=== PATIENT | male | born 1955 | race Caucasian/White ===

== ENCOUNTER → 2016-07-22 | Outpatient (CLI) | payer OTHER ==
--- NOTE | 2016-07-22 18:05 | REP ---
KUB: Single view. History: Left lower quadrant pain, flank pain. Findings: The bowel gas pattern is unremarkable. Psoas margins and flank stripes are intact. No mass or organomegaly is seen. No pathologic calcification is seen. Impression: Negative KUB. Signed by Altaf Meraz MD 07/22/2016 06:41 P
== END ==
LOC: M LRY 17:15
PROVIDERS: ATTEND Physician Assistant
DX: R10.9 Unspecified abdominal pain (principal); R10.32 Left lower quadrant pain

== ENCOUNTER → 2016-07-22 | Outpatient (REF) | payer OTHER ==
[2016-07-22 20:21] LABS: BASO % 0.4 % (0.0-1.0); EOS # 0.2 K/mm3 (0.0-0.50); EOS % 2.6 % (0.0-3.0); LARGE UNSTAINED CELL # 0.1 K/mm3 (0.0-0.4); LARGE UNSTAINED CELL % 2.2 % (0.0-4.0); LYMPH # 1.2 K/mm3 (1.5-4.5); LYMPH % 19.5 % (24.0-44.0); MEAN CORPUSCULAR HEMOGLOBIN 31.2 pg (27.0-33.0); MEAN CORPUSCULAR HGB CONC 35.8 g/dl (32.0-36.5); MEAN CORPUSCULAR VOLUME 87.2 fl (80.0-96.0); MONO # 0.4 K/mm3 (0.0-0.8); MONO % 7.1 % (0.0-5.0); NEUTROPHILS # 4.1 K/mm3 (1.8-7.7); NEUTROPHILS % 68.3 % (36.0-66.0); PLATELET COUNT, AUTOMATED 227 k/mm3 (150-450); RED CELL DISTRIBUTION WIDTH 13.9 % (11.5-14.5)
[2016-07-22 21:09] LABS: ALBUMIN/GLOBULIN RATIO 1.33 (1.00-1.93); ALKALINE PHOSPHATASE 79 U/L (45-117); ALT/SGPT 27 U/L (12-78); ANION GAP 10 MEQ/L (8-16); AST/SGOT 15 U/L (15-37); BILIRUBIN,TOTAL 0.6 MG/DL (0.2-1.0); BLOOD UREA NITROGEN 17 MG/DL (7-18); CALCIUM LEVEL 8.9 MG/DL (8.8-10.2); CARBON DIOXIDE LEVEL 25 MEQ/L (21-32); CHLORIDE LEVEL 107 MEQ/L (98-107); CREATININE FOR GFR 1.14 MG/DL (0.70-1.30); GLOMERULAR FILTRATION RATE > 60.0 (>49); GLUCOSE, FASTING 88 MG/DL (80-110); SODIUM LEVEL 142 MEQ/L (136-145)
[2016-07-23 13:36] LABS: CONTROL LINE INT CTR LINE PRESENT; HIV SCRN NEGATIVE (NEGATIVE); HIV SCRN1 NEGATIVE (NEGATIVE)
== END ==
LOC: M SFHCLERA 17:58
PROVIDERS: ATTEND Physician Assistant
DX: Z11.3 Encounter for screening for infections with a predominantly sexual mode of transmission (principal); R10.32 Left lower quadrant pain

== ENCOUNTER 2016-07-30 17:48 | Emergency (ER) | payer OTHER ==
[2016-07-30] MEDS ORDERED: KETOROLAC 30 MG/ML VIAL (J1885) As Ordered ONE (19:07)
[2016-07-30] MEDS ORDERED: ISOVUE-370 76% 100ML VIAL (Q9967) As Ordered ONE (19:09)
--- NOTE | 2016-07-30 20:00 | REPUSA ---
CT of the abdomen and pelvis with contrast Clinical statement: Pain. Possible diverticulitis. Technique: Multiple axial CT images were obtained from the base of the lungs through the floor of the pelvis utilizing 5 mm axial slices after administration of nonionic intravenous contrast. Coronal an d sagittal reconstructions were also obtained. No comparison is available. Findings: Chest: The visualized lung bases are clear. Abdomen: The liver, spleen, pancreas, kidneys, gallbladder, and adrenal glands are unremarkable. The aorta is within normal limits. There is no evidence of abdominal lymphadenopathy or ascites. Pelvis: There is minimal sigmoid diverticulosis, without evidence of diverticulitis. The bowel is ot herwise unremarkable, with no obstructive or inflammatory changes. The appendix is normal. The urinar y bladder is within normal limits. The other pelvic structures appear grossly intact. There is no racquel dence of pelvic lymphadenopathy or ascites. Bones: There are no suspicious osseous abnormalities seen. There is mild degenerative disc disease at L4/L5. Impression: 1. Mild sigmoid diverticulosis without evidence of diverticulitis. No obstructive or inflammatory bow el changes. 2. No evidence of hydronephrosis or nephrolithiasis. 3. Minimal degenerative disc disease at L4/L5.
--- NOTE | 2016-07-30 20:35 | EDDOCDS ---
Nurse's Notes [facility] Name: Antoine Causey Age: 61 yrs Sex: Male : 1955 Arrival Date: 07/30/2016 Time: 17:48 Bed I5 / M5 Private MD: NO PRIMARY PHYSICIAN, . Diagnosis: Diverticulitis of intestine, part unspecified, without perforation or abscess without bleeding Presentation: 07/30 17:58 Presenting complaint: Patient states: Went to [facility] urgent care 07/22/16 with severe jo3 pain to LLQ. Did abdominal XR and urine screen both negative. Pain has been intermittent but is intense today. Was told to follow up for a CT if pain did not resolve. Adult Sepsis Screening: The patient does not have new or worsening altered mentation. Patient's respiratory rate is less than 22. Systolic blood pressure is greater than 100. Patient has a qSOFA score of 0- Negative Sepsis Screen. Suicide/Homicide risk assessment- the patient denies having any suicidal and/or homicidal ideations and does not present with any other emotional, behavioral or mental health complaints. Status: Patient is not a social service agency director or dependent. Transition of care: patient was not received from another setting of care. 17:58 Acuity: BROOKE Level 3 jo3 17:58 Method Of Arrival: Walkin/Carried/Asstd jo3 Triage Assessment: 18:03 General: Appears in no apparent distress, comfortable, Behavior is appropriate for age, jo3 cooperative, pleasant. Pain: Pain currently is 8 out of 10 on a pain scale. HIV screening NA for this visit Offered previously. Neurological: Level of Consciousness is awake, alert, Oriented to person, place, time. Respiratory: Airway is patent Respiratory effort is even, unlabored. Derm: Skin is pink, warm & dry. Historical: - Allergies: Benadryl; - Home Meds: 1. Aleve 220 mg Oral tab 1 tab every 8 hours 2. Symbicort 160-4.5 mcg/actuation inhalation HFAA 2 puffs 2 times per day 3. multivitamin Oral tab 4. albuterol sulfate 90 mcg/actuation Inhl HFAA - PMHx: Hypercholesterolemia; Asthma; - PSHx: Tonsillectomy; Hernia repair; Cervical Fusion; - Social history: Smoking status: Patient states was never smoker of tobacco. No barriers to communication noted, The patient speaks fluent Guyanese, Speaks appropriately for age. - Family history: Not pertinent. - : The pt / caregiver states he / she is not on anticoagulants. Home medication list is obtained from the patient. - Exposure Risk Screening:: None identified. Screenin:24 Screening information is obtained from the patient. Fall risk: No risks identified. ms18 Assistance ADL's: requires no assistance with activities of daily living. Abuse/DV Screen: The patient / caregiver reports he/she is: not in a situation that causes fear, pain or injury. Nutritional screening: No deficits noted. Advance Directives: There is no living will. home support is adequate. Assessment: 19:24 General: Appears in no apparent distress, comfortable, Behavior is appropriate for age, ms18 cooperative, pleasant. Pain: Location: right lower quadrant Pain currently is 8 out of 10 on a pain scale. Neurological: Level of Consciousness is awake, alert, obeys commands, Oriented to person, place, time. Respiratory: Airway is patent Respiratory effort is even, unlabored. GI: Abdomen is flat, non- distended Bowel sounds present X 4 quads. Abd is soft X 4 quads. Derm: Skin is pink, warm & dry. 19:40 General: Pt returned from CT at this time. Pt in no acute distress. . Neurological: No ms18 deficits noted. Respiratory: No deficits noted. Derm: Skin is pink, warm & dry. normal. 20:33 General: Appears in no apparent distress, comfortable, Behavior is appropriate for age, ms18 cooperative, pleasant. Pain: Pain currently is 6 out of 10 on a pain scale. Neurological: No deficits noted. Level of Consciousness is awake, alert, obeys commands, Oriented to person, place, time, Gait is steady. Respiratory: No deficits noted. Derm: Skin is pink, warm & dry. Vital Signs: 17:51 BP 121 / 85; Pulse 61; Resp 18; Temp 97.6(O); Pulse Ox 98% on R/A; Weight 72.57 kg (R); elp Height 5 ft. 6 in. (167.64 cm) (R); Pain 8/10; 20:33 BP 111 / 67; Pulse 64; Resp 18; Temp 97.5; Pulse Ox 97% ; Pain 6/10; ms18 17:51 Body Mass Index 25.82 (72.57 kg, 167.64 cm) elp Vitals: 17:51 Log In Time: July 30, 2016 at 17:47. elp ED Course: 17:50 Patient visited by Aileen Haas PCA. elp 17:50 Patient moved to Waiting elp 17:51 NO PRIMARY PHYSICIAN, . is Private Physician. elp 17:51 Patient visited by Aileen Haas PCA. elp 17:52 Patient moved to Pre RCE elp 18:01 Triage Initiated jo3 18:04 Patient visited by Shu Saravia RN. jo3 18:48 Patient moved to Triage 2 kcs 18:56 [facility] cc[facility] 18:56 Farhan Palumbo MD is Attending Physician. cc10 18:56 Patient visited by Cory Carter PA-C. cc10 18:56 Patient visited by Cory Carter PA-C. cc10 19:05 Patient moved to I5 / M5 ct3 19:23 Patient visited by Beverley Mendieta RN. ms18 19:24 The patient / caregiver is instructed regarding the plan of care and ED course. Patient ms18 has correct armband on for positive identification. Placed in gown. Bed in low position. Property :Personal belongings accompany Pt. 19:24 Inserted saline lock: 18 gauge in left antecubital area The patient tolerated the ms18 procedure well. 19:39 Patient visited by Beverley Mendieta RN. ms18 20:14 CT ABD & PELVIS: IV Contrast Only: has recent labs Returned. EDMS 20:15 [facility] is Referral Physician. cc10 20:24 [facility] Payment Agreement was scanned into [employer] and attached to record. gjb 20:33 Patient visited by Beverley Mendieta RN. ms18 20:33 Discontinued IV lock intact, bleeding controlled, pressure dressing applied, No ms18 redness/swelling at site. No procedures done that require assistance. Administered Medications: 19:23 Drug: ketorolac 30 mg [ketorolac 30 mg/mL (1 mL) injection solution (1 mL)] Route: IVP; ms18 Site: left antecubital; Order Results: Radiology Order: CT ABD & PELVIS: IV Contrast Only: has recent labs Test: CT ABD & PELVIS: IV Contrast Only: has recent labs REASON FOR EXAMINATION: Diverticulitis; ; CT of the abdomen and pelvis with contrast; Clinical statement: Pain. Possible diverticulitis.; Technique: Multiple axial CT images were obtained from the base of the lungs through the floor of the; pelvis utilizing 5 mm axial slices after administration of nonionic intravenous contrast. Coronal an; d sagittal reconstructions were also obtained.; No comparison is available.; Findings:; Chest: The visualized lung bases are clear.; Abdomen: The liver, spleen, pancreas, kidneys, gallbladder, and adrenal glands are unremarkable. The; aorta is within normal limits. There is no evidence of abdominal lymphadenopathy or ascites.; Pelvis: There is minimal sigmoid diverticulosis, without evidence of diverticulitis. The bowel is ot; herwise unremarkable, with no obstructive or inflammatory changes. The appendix is normal. The urinar; y bladder is within normal limits. The other pelvic structures appear grossly intact. There is no racquel; dence of pelvic lymphadenopathy or ascites.; Bones: There are no suspicious osseous abnormalities seen. There is mild degenerative disc disease at; L4/L5.; Impression:; 1. Mild sigmoid diverticulosis without evidence of diverticulitis. No obstructive or inflammatory bow; el changes.; 2. No evidence of hydronephrosis or nephrolithiasis.; 3. Minimal degenerative disc disease at L4/L5.; ; Outcome: 20:15 Discharge ordered by Provider. cc10 20:33 Discharge Assessment: Patient awake, alert and oriented x 3. No cognitive and/or ms18 functional deficits noted. Patient verbalized understanding of disposition instructions. patient administered narcotics - no. The following High Risk Discharge criteria are identified: None. Discharged to home ambulatory. Condition: good Condition: stable Condition: improved. Discharge instructions given to patient, Instructed on discharge instructions, follow up and referral plans. medication usage, diet, Demonstrated understanding of instructions, medications, Pt was receptive of discharge instructions/ teaching. Prescriptions given X 4. CT Study completed. 20:34 Patient left the ED. ms18 Signatures: Dispatcher [employer] EDMS Miriam Dover RN RN kcs Helmerci, Jennifer, RN RN jo3 Velma Healy, GOLF COURSE MECHANIC GOLF COURSE MECHANIC ct3 Aileen Haas, GOLF COURSE MECHANIC GOLF COURSE MECHANIC elp Con[place]gaby, Cory, PA-C PA-C cc10 Beverley Mendieta,RN RN ms18 Leah Croft MTDD
--- NOTE | 2016-07-30 20:35 | EDDOCDS ---
Physician Documentation [facility] Name: Antoine Causey Age: 61 yrs Sex: Male : 1955 Arrival Date: 07/30/2016 Time: 17:48 Bed I5 / M5 Private MD: NO PRIMARY PHYSICIAN, . Disposition: 07/30/16 20:15 Discharged to Home/Self Care. Impression: Diverticulitis of intestine, part unspecified, without perforation or abscess without bleeding. - Condition is Stable. - Discharge Instructions: Clear Liquid Diet, Diverticulitis. - Prescriptions for Cipro 500 mg Oral Tablet - take 1 tablet by ORAL route every 12 hours; 14 tablet. Flagyl 500 mg Oral Tablet - take 1 tablet by ORAL route every 8 hours for 7 days; 21 tablet. Ultram 50 mg Oral Tablet - take 1 tablet by ORAL route every 6 hours As needed MDD: 4 tabs; 16 tablet. ZOFRAN ODT 4 mg - dissolve 1 tablet by ORAL route 4 times per day As needed do not chew, do not swallow whole; 10 tablet. - Medication Reconciliation, Local Pharmacy Hours form. - Follow up: Emergency Department; When: As needed; Reason: Worsening of conditions. [facility]: [facility]; When: Call to arrange an appointment; Reason: Recheck today's complaints, Continuance of care, To establish care. - Problem is an ongoing problem. - Symptoms are unchanged. Historical: - Allergies: Benadryl; - Home Meds: 1. Aleve 220 mg Oral tab 1 tab every 8 hours 2. Symbicort 160-4.5 mcg/actuation inhalation HFAA 2 puffs 2 times per day 3. multivitamin Oral tab 4. albuterol sulfate 90 mcg/actuation Inhl HFAA - PMHx: Hypercholesterolemia; Asthma; - PSHx: Tonsillectomy; Hernia repair; Cervical Fusion; - Social history: Smoking status: Patient states was never smoker of tobacco. No barriers to communication noted, The patient speaks fluent Yakut, Speaks appropriately for age. - Family history: Not pertinent. - : The pt / caregiver states he / she is not on anticoagulants. Home medication list is obtained from the patient. - Exposure Risk Screening:: None identified. Vital Signs: 07/30 17:51 BP 121 / 85; Pulse 61; Resp 18; Temp 97.6(O); Pulse Ox 98% on R/A; Weight 72.57 kg / elp 159.99 lbs (R); Height 5 ft. 6 in. (167.64 cm) (R); Pain 8/10; 20:33 BP 111 / 67; Pulse 64; Resp 18; Temp 97.5; Pulse Ox 97% ; Pain 6/10; ms18 17:51 Body Mass Index 25.82 (72.57 kg, 167.64 cm) elp MDM: 19:04 IV Saline Lock ordered. cc10 19:04 Undress patient appropriately for examination ordered. cc10 19:04 ketorolac 30 mg IVP once ordered. cc10 19:05 NOTHING BY MOUTH+DIET ordered. EDMS 19:06 CT ABD & PELVIS: IV Contrast Only: has recent labs Ordered. EDMS 20:15 Financial registration complete. gjb 20:24 [facility] Payment Agreement was scanned into [employer] and attached to record. gjb Administered Medications: 19:23 Drug: ketorolac 30 mg [ketorolac 30 mg/mL (1 mL) injection solution (1 mL)] Route: IVP; ms18 Site: left antecubital; Signatures: Dispatcher [employer] EDMS Shu Saravia RN RN jo3 Cory Carter, PAEmilyC PASherine cc10 Beverley Mendieta RN RN ms18 Leah Croft The chart was reviewed and I authenticate all verbal orders and agree with the evaluation and treatment provided.Attachments: 20:24 [facility] Payment Agreement gjb MTDD
--- NOTE | 2016-08-01 21:35 | EDDOCDS ---
Physician Documentation [facility] Name: Antoine Causey Age: 61 yrs Sex: Male : 1955 Arrival Date: 07/30/2016 Time: 17:48 Bed I5 / M5 Private MD: NO PRIMARY PHYSICIAN, . Disposition: 07/30/16 20:15 Discharged to Home/Self Care. Impression: Diverticulitis of intestine, part unspecified, without perforation or abscess without bleeding. - Condition is Stable. - Discharge Instructions: Clear Liquid Diet, Diverticulitis. - Prescriptions for Cipro 500 mg Oral Tablet - take 1 tablet by ORAL route every 12 hours; 14 tablet. Flagyl 500 mg Oral Tablet - take 1 tablet by ORAL route every 8 hours for 7 days; 21 tablet. Ultram 50 mg Oral Tablet - take 1 tablet by ORAL route every 6 hours As needed MDD: 4 tabs; 16 tablet. ZOFRAN ODT 4 mg - dissolve 1 tablet by ORAL route 4 times per day As needed do not chew, do not swallow whole; 10 tablet. - Medication Reconciliation, Local Pharmacy Hours form. - Follow up: Emergency Department; When: As needed; Reason: Worsening of conditions. [facility]: [facility]; When: Call to arrange an appointment; Reason: Recheck today's complaints, Continuance of care, To establish care. - Problem is an ongoing problem. - Symptoms are unchanged. Historical: - Allergies: Benadryl; - Home Meds: 1. Aleve 220 mg Oral tab 1 tab every 8 hours 2. Symbicort 160-4.5 mcg/actuation inhalation HFAA 2 puffs 2 times per day 3. multivitamin Oral tab 4. albuterol sulfate 90 mcg/actuation Inhl HFAA - PMHx: Hypercholesterolemia; Asthma; - PSHx: Tonsillectomy; Hernia repair; Cervical Fusion; - Social history: Smoking status: Patient states was never smoker of tobacco. No barriers to communication noted, The patient speaks fluent Bulgarian, Speaks appropriately for age. - Family history: Not pertinent. - : The pt / caregiver states he / she is not on anticoagulants. Home medication list is obtained from the patient. - Exposure Risk Screening:: None identified. Vital Signs: 07/30 17:51 BP 121 / 85; Pulse 61; Resp 18; Temp 97.6(O); Pulse Ox 98% on R/A; Weight 72.57 kg / elp 159.99 lbs (R); Height 5 ft. 6 in. (167.64 cm) (R); Pain 8/10; 20:33 BP 111 / 67; Pulse 64; Resp 18; Temp 97.5; Pulse Ox 97% ; Pain 6/10; ms18 17:51 Body Mass Index 25.82 (72.57 kg, 167.64 cm) elp MDM: 19:04 IV Saline Lock ordered. cc10 19:04 Undress patient appropriately for examination ordered. cc10 19:04 ketorolac 30 mg IVP once ordered. cc10 19:05 NOTHING BY MOUTH+DIET ordered. EDMS 19:06 CT ABD & PELVIS: IV Contrast Only: has recent labs Ordered. EDMS 20:15 Financial registration complete. b 20:24 [facility] Payment Agreement was scanned into [employer] and attached to record. gjb 07/31 12:05 T-Sheet-- Draft Copy was scanned into [employer] and attached to record. gb 12:05 Radiology Report was scanned into [employer] and attached to record. gb Administered Medications: 07/30 19:23 Drug: ketorolac 30 mg [ketorolac 30 mg/mL (1 mL) injection solution (1 mL)] Route: IVP; ms18 Site: left antecubital; Signatures: Dispatcher [employer] EDNJ Samia Lunsford, Cain Reg Shu Gutierrez RN RN jo3 Cory Carter PA-C PA-C cc10 Smith, Mallory, RN RN ms18 Leah Croft The chart was reviewed and I authenticate all verbal orders and agree with the evaluation and treatment provided.Attachments: 20:24 [facility] Payment Agreement [facility] 07/31 12:05 T-Sheet-- Draft Copy gb Chart Complete MTDD
--- NOTE | 2016-08-01 21:35 | EDDOCDS ---
Nurse's Notes [facility] Name: Antoine Causey Age: 61 yrs Sex: Male : 1955 Arrival Date: 07/30/2016 Time: 17:48 Bed I5 / M5 Private MD: NO PRIMARY PHYSICIAN, . Diagnosis: Diverticulitis of intestine, part unspecified, without perforation or abscess without bleeding Presentation: 07/30 17:58 Presenting complaint: Patient states: Went to [facility] urgent care 07/22/16 with severe jo3 pain to LLQ. Did abdominal XR and urine screen both negative. Pain has been intermittent but is intense today. Was told to follow up for a CT if pain did not resolve. Adult Sepsis Screening: The patient does not have new or worsening altered mentation. Patient's respiratory rate is less than 22. Systolic blood pressure is greater than 100. Patient has a qSOFA score of 0- Negative Sepsis Screen. Suicide/Homicide risk assessment- the patient denies having any suicidal and/or homicidal ideations and does not present with any other emotional, behavioral or mental health complaints. 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 Transition of care: patient was not received from another setting of care. 17:58 Acuity: BROOKE Level 3 jo3 17:58 Method Of Arrival: Walkin/Carried/Asstd jo3 Triage Assessment: 18:03 General: Appears in no apparent distress, comfortable, Behavior is appropriate for age, jo3 cooperative, pleasant. Pain: Pain currently is 8 out of 10 on a pain scale. HIV screening NA for this visit Offered previously. Neurological: Level of Consciousness is awake, alert, Oriented to person, place, time. Respiratory: Airway is patent Respiratory effort is even, unlabored. Derm: Skin is pink, warm & dry. Historical: - Allergies: Benadryl; - Home Meds: 1. Aleve 220 mg Oral tab 1 tab every 8 hours 2. Symbicort 160-4.5 mcg/actuation inhalation HFAA 2 puffs 2 times per day 3. multivitamin Oral tab 4. albuterol sulfate 90 mcg/actuation Inhl HFAA - PMHx: Hypercholesterolemia; Asthma; - PSHx: Tonsillectomy; Hernia repair; Cervical Fusion; - Social history: Smoking status: Patient states was never smoker of tobacco. No barriers to communication noted, The patient speaks fluent Ghanaian, Speaks appropriately for age. - Family history: Not pertinent. - : The pt / caregiver states he / she is not on anticoagulants. Home medication list is obtained from the patient. - Exposure Risk Screening:: None identified. Screenin:24 Screening information is obtained from the patient. Fall risk: No risks identified. ms18 Assistance ADL's: requires no assistance with activities of daily living. Abuse/DV Screen: The patient / caregiver reports he/she is: not in a situation that causes fear, pain or injury. Nutritional screening: No deficits noted. Advance Directives: There is no living will. home support is adequate. Assessment: 19:24 General: Appears in no apparent distress, comfortable, Behavior is appropriate for age, ms18 cooperative, pleasant. Pain: Location: right lower quadrant Pain currently is 8 out of 10 on a pain scale. Neurological: Level of Consciousness is awake, alert, obeys commands, Oriented to person, place, time. Respiratory: Airway is patent Respiratory effort is even, unlabored. GI: Abdomen is flat, non- distended Bowel sounds present X 4 quads. Abd is soft X 4 quads. Derm: Skin is pink, warm & dry. 19:40 General: Pt returned from CT at this time. Pt in no acute distress. . Neurological: No ms18 deficits noted. Respiratory: No deficits noted. Derm: Skin is pink, warm & dry. normal. 20:33 General: Appears in no apparent distress, comfortable, Behavior is appropriate for age, ms18 cooperative, pleasant. Pain: Pain currently is 6 out of 10 on a pain scale. Neurological: No deficits noted. Level of Consciousness is awake, alert, obeys commands, Oriented to person, place, time, Gait is steady. Respiratory: No deficits noted. Derm: Skin is pink, warm & dry. Vital Signs: 17:51 BP 121 / 85; Pulse 61; Resp 18; Temp 97.6(O); Pulse Ox 98% on R/A; Weight 72.57 kg (R); elp Height 5 ft. 6 in. (167.64 cm) (R); Pain 8/10; 20:33 BP 111 / 67; Pulse 64; Resp 18; Temp 97.5; Pulse Ox 97% ; Pain 6/10; ms18 17:51 Body Mass Index 25.82 (72.57 kg, 167.64 cm) [facility] Vitals: 17:51 Log In Time: July 30, 2016 at 17:47. elp ED Course: 17:50 Patient visited by Aileen Haas PCA. elp 17:50 Patient moved to Waiting elp 17:51 NO PRIMARY PHYSICIAN, . is Private Physician. elp 17:51 Patient visited by Aileen Haas PCA. elp 17:52 Patient moved to Pre RCE elp 18:01 Triage Initiated jo3 18:04 Patient visited by Shu Saravia RN. jo3 18:48 Patient moved to Triage 2 kcs 18:56 Cory Carter [facility]-C [facility]. cc10 18:56 Farhan Palumbo MD is Attending Physician. cc10 18:56 Patient visited by Cory Carter PA-C. cc10 18:56 Patient visited by Cory Carter PA-C. cc10 19:05 Patient moved to I5 / M5 ct3 19:23 Patient visited by Beverley Mendieta RN. ms18 19:24 The patient / caregiver is instructed regarding the plan of care and ED course. Patient ms18 has correct armband on for positive identification. Placed in gown. Bed in low position. Property :Personal belongings accompany Pt. 19:24 Inserted saline lock: 18 gauge in left antecubital area The patient tolerated the ms18 procedure well. 19:39 Patient visited by Beverley Mendieta RN. ms18 20:14 CT ABD & PELVIS: IV Contrast Only: has recent labs Returned. EDMS 20:15 [facility] is Referral Physician. cc10 20:24 [facility] Payment Agreement was scanned into [employer] and attached to record. gjb 20:33 Patient visited by Beverley Mendieta RN. ms18 20:33 Discontinued IV lock intact, bleeding controlled, pressure dressing applied, No ms18 redness/swelling at site. No procedures done that require assistance. 07/31 12:05 T-Sheet-- Draft Copy was scanned into [employer] and attached to record. gb 12:05 Radiology Report was scanned into [employer] and attached to record. gb Administered Medications: 07/30 19:23 Drug: ketorolac 30 mg [ketorolac 30 mg/mL (1 mL) injection solution (1 mL)] Route: IVP; ms18 Site: left antecubital; Order Results: Radiology Order: CT ABD & PELVIS: IV Contrast Only: has recent labs Test: CT ABD & PELVIS: IV Contrast Only: has recent labs REASON FOR EXAMINATION: Diverticulitis; ; CT of the abdomen and pelvis with contrast; Clinical statement: Pain. Possible diverticulitis.; Technique: Multiple axial CT images were obtained from the base of the lungs through the floor of the; pelvis utilizing 5 mm axial slices after administration of nonionic intravenous contrast. Coronal an; d sagittal reconstructions were also obtained.; No comparison is available.; Findings:; Chest: The visualized lung bases are clear.; Abdomen: The liver, spleen, pancreas, kidneys, gallbladder, and adrenal glands are unremarkable. The; aorta is within normal limits. There is no evidence of abdominal lymphadenopathy or ascites.; Pelvis: There is minimal sigmoid diverticulosis, without evidence of diverticulitis. The bowel is ot; herwise unremarkable, with no obstructive or inflammatory changes. The appendix is normal. The urinar; y bladder is within normal limits. The other pelvic structures appear grossly intact. There is no racquel; dence of pelvic lymphadenopathy or ascites.; Bones: There are no suspicious osseous abnormalities seen. There is mild degenerative disc disease at; L4/L5.; Impression:; 1. Mild sigmoid diverticulosis without evidence of diverticulitis. No obstructive or inflammatory bow; el changes.; 2. No evidence of hydronephrosis or nephrolithiasis.; 3. Minimal degenerative disc disease at L4/L5.; ; Outcome: 20:15 Discharge ordered by Provider. cc10 20:33 Discharge Assessment: Patient awake, alert and oriented x 3. No cognitive and/or ms18 functional deficits noted. Patient verbalized understanding of disposition instructions. patient administered narcotics - no. The following High Risk Discharge criteria are identified: None. Discharged to home ambulatory. Condition: good Condition: stable Condition: improved. Discharge instructions given to patient, Instructed on discharge instructions, follow up and referral plans. medication usage, diet, Demonstrated understanding of instructions, medications, Pt was receptive of discharge instructions/ teaching. Prescriptions given X 4. CT Study completed. 20:34 Patient left the ED. ms18 Signatures: Dispatcher [employer] EDMS Miriam Dover, RN RN kcs Isatu, Samia, Reg Reg gb Shu SaraviaRN RN jo3 Monet, Velma, REFINERY OPERATOR VISBREAKING REFINERY OPERATOR VISBREAKING ct3 Aileen Haas, REFINERY OPERATOR VISBREAKING REFINERY OPERATOR VISBREAKING elp Emma, Cory, PA-C PA-C cc10 Beverley Mendieta RN RN ms18 Leah Croft [facility] Chart Complete MTDD
--- NOTE | 2016-08-01 21:35 | EDDOCDS ---
Physician Documentation [facility] Name: Antoine Causey Age: 61 yrs Sex: Male : 1955 Arrival Date: 07/30/2016 Time: 17:48 Bed I5 / M5 Private MD: NO PRIMARY PHYSICIAN, . Disposition: 07/30/16 20:15 Discharged to Home/Self Care. Impression: Diverticulitis of intestine, part unspecified, without perforation or abscess without bleeding. - Condition is Stable. - Discharge Instructions: Clear Liquid Diet, Diverticulitis. - Prescriptions for Cipro 500 mg Oral Tablet - take 1 tablet by ORAL route every 12 hours; 14 tablet. Flagyl 500 mg Oral Tablet - take 1 tablet by ORAL route every 8 hours for 7 days; 21 tablet. Ultram 50 mg Oral Tablet - take 1 tablet by ORAL route every 6 hours As needed MDD: 4 tabs; 16 tablet. ZOFRAN ODT 4 mg - dissolve 1 tablet by ORAL route 4 times per day As needed do not chew, do not swallow whole; 10 tablet. - Medication Reconciliation, Local Pharmacy Hours form. - Follow up: Emergency Department; When: As needed; Reason: Worsening of conditions. Follow up: [facility]; When: Call to arrange an appointment; Reason: Recheck today's complaints, Continuance of care, To establish care. - Problem is an ongoing problem. - Symptoms are unchanged. Historical: - Allergies: Benadryl; - Home Meds: 1. Aleve 220 mg Oral tab 1 tab every 8 hours 2. Symbicort 160-4.5 mcg/actuation inhalation HFAA 2 puffs 2 times per day 3. multivitamin Oral tab 4. albuterol sulfate 90 mcg/actuation Inhl HFAA - PMHx: Hypercholesterolemia; Asthma; - PSHx: Tonsillectomy; Hernia repair; Cervical Fusion; - Social history: Smoking status: Patient states was never smoker of tobacco. No barriers to communication noted, The patient speaks fluent Wolof, Speaks appropriately for age. - Family history: Not pertinent. - : The pt / caregiver states he / she is not on anticoagulants. Home medication list is obtained from the patient. - Exposure Risk Screening:: None identified. Vital Signs: 07/30 17:51 BP 121 / 85; Pulse 61; Resp 18; Temp 97.6(O); Pulse Ox 98% on R/A; Weight 72.57 kg / elp 159.99 lbs (R); Height 5 ft. 6 in. (167.64 cm) (R); Pain 8/10; 20:33 BP 111 / 67; Pulse 64; Resp 18; Temp 97.5; Pulse Ox 97% ; Pain 6/10; ms18 17:51 Body Mass Index 25.82 (72.57 kg, 167.64 cm) elp MDM: 19:04 IV Saline Lock ordered. cc10 19:04 Undress patient appropriately for examination ordered. cc10 19:04 ketorolac 30 mg IVP once ordered. cc10 19:05 NOTHING BY MOUTH+DIET ordered. EDMS 19:06 CT ABD & PELVIS: IV Contrast Only: has recent labs Ordered. EDMS 20:15 Financial registration complete. b 20:24 [facility] Payment Agreement was scanned into [employer] and attached to record. gjb 07/31 12:05 T-Sheet-- Draft Copy was scanned into [employer] and attached to record. gb 12:05 Radiology Report was scanned into [employer] and attached to record. gb Administered Medications: 07/30 19:23 Drug: ketorolac 30 mg [ketorolac 30 mg/mL (1 mL) injection solution (1 mL)] Route: IVP; ms18 Site: left antecubital; Signatures: Dispatcher [employer] EDTN Samia Lunsford, Cain Reg Shu Gutierrez RN RN jo3 Cory Carter PA-C PA-C cc10 Smith, Mallory, RN RN ms18 Leah Croft The chart was reviewed and I authenticate all verbal orders and agree with the evaluation and treatment provided.Attachments: 20:24 [facility] Payment Agreement [facility] 07/31 12:05 T-Sheet-- Draft Copy gb Chart Complete MTDD
== END 2016-07-30 20:34 | disposition home or self-care (01) ==
LOC: M ED 17:48
DX: K57.30 Diverticulosis of large intestine without perforation or abscess without bleeding (principal); J45.909 Unspecified asthma, uncomplicated; E78.00 Pure hypercholesterolemia, unspecified; Z79.51 Long term (current) use of inhaled steroids; Z88.8 Allergy status to other drugs, medicaments and biological substances
CPT/HCPCS: 74177; 96374; 99284; J1885; Q9967

== ENCOUNTER 2016-09-11 15:05 | Emergency (ER) | payer MEDICARE, OTHER ==
[~2016-09-11] VITALS: Ht 167.6 cm; Wt 72.6 kg
[2016-09-11] MEDS ORDERED: SYMB16INH INH (15:22)
[2016-09-11] MEDS ORDERED: ALBU83IN INH ×2 (15:22→17:48)
[2016-09-11] MEDS ORDERED: ACETAMINOPHEN 325 MG TAB PO ONE (16:45)
[2016-09-11] MEDS ORDERED: IBUPROFEN 600 MG TAB PO ONE (16:45)
[2016-09-11 17:48] VITALS: BP 104/69
[2016-09-11] MEDS ORDERED: ZOFR4TAB3 PO (17:48)
[2016-09-11] MEDS ORDERED: TESS100C PO (17:48)
--- NOTE | 2016-09-11 18:19 | REP ---
Chest x-ray: Two views. History: Cough and fever, question pneumonia. Comparison chest x-ray March 13, 2014. Findings: The patient is status post anterior cervical discectomy and fusion. The lungs are well inflated and clear. The pleural angles are sharp. Heart size is normal. The aorta is somewhat tortuous as before. Pulmonary vasculature is not increased. Impression: No active disease. Signed by Altaf Meraz MD 09/11/2016 07:02 P
[2016-10-13] MEDS ORDERED: MULT1TAB10 PO (11:48)
[2016-10-13] MEDS ORDERED: ZYRT10TA2 PO (11:48)
== END 2016-09-11 17:57 | disposition home or self-care (01) ==
LOC: M ED 17:23
DX: B34.9 Viral infection, unspecified (principal)

== ENCOUNTER → 2016-09-15 | Outpatient (REF) | payer OTHER ==
[~2016-09-15] MED LIST: ALBU83IN INH; SYMB16INH INH; TESS100C PO; ZOFR4TAB3 PO
== END ==
LOC: M SFHCLERA 14:24
PROVIDERS: ATTEND Family Medicine
DX: Z13.1 Encounter for screening for diabetes mellitus (principal); Z13.220 Encounter for screening for lipoid disorders

== ENCOUNTER → 2016-09-21 | Outpatient (REF) | payer MEDICARE, OTHER ==
[~2016-09-21] MED LIST changes: +MULT1TAB10 PO; +ZYRT10TA2 PO
== END ==
LOC: M SFHCLERA 15:04
PROVIDERS: ATTEND Family Medicine
DX: Z13.1 Encounter for screening for diabetes mellitus (principal); Z13.220 Encounter for screening for lipoid disorders

== ENCOUNTER → 2016-10-09 | Outpatient (CLI) | payer MEDICARE, OTHER ==
[~2016-10-09] MED LIST changes: +E-Z PAQUE 60% w/v SUSP 355ML BOTTLE As Ordered ONE; +E-Z-GAS II EFFERVESCENT PACKET (SODIUM BICARB./CITRIC ACID/SIMETHICONE) As Ordered ONE; +E-Z-HD 98% w/w 340GM SUSP BTL As Ordered ONE
--- NOTE | 2016-10-09 13:33 | REP ---
ESOPHAGRAM WITH BARIUM SWALLOW AND PA CHEST: 10/09/2016. Clinical history: Dysphagia, sensation of food getting stuck with difficulty swallowing. Heartburn and reflux symptoms. Comparison: CT soft tissue neck 03/13/2014. Findings: Planer Stone PA chest shows C6-7 anterior cervical discectomy plate and screw fusion device. Airway midline, not displaced. No air-fluid levels in the mediastinum. No widening of the ascending. The aorta is mildly tortuous but normal for age. No cardiomegaly. Bones show some degenerative changes in the spine and the lungs show no acute finding. AP and lateral CINE esophagram show indentation of the posterior margin of the lower cervical esophagus by the plate and screw fixation device at the C7 level, more than C6. Anterior osteophytes are present. There is foraminal encroachment on these oblique lateral swallows due to uncinate and facet spurs. There is no laryngeal penetration or aspiration. Thoracic esophagus shows some dysmotility. There is a small to moderate sized hiatal hernia. This did not reduce. Distal esophagus without tight stricture but the dysmotility is notable with some secondary contractions. There were episodes of free reflux into the lower esophageal segment. Impression: 1. Posterior impression on the cervical esophagus causing some mild narrowing due to the plate and screw fixation device at C6-7 from anterior discectomy. No laryngeal penetration or aspiration. 2. 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 No persistent tight stricture, mucosal lesions or extrinsic mass effect visible. Fluoroscopy time: 1-min 16-sec. Signed by Pradip Kohler MD 10/09/2016 03:04 P
== END ==
LOC: M RAD 09:56
PROVIDERS: ATTEND Physician Assistant Medical
DX: K44.9 Diaphragmatic hernia without obstruction or gangrene (principal); R13.10 Dysphagia, unspecified; R12 Heartburn

== ENCOUNTER → 2016-10-20 | Outpatient (CLI) | payer MEDICARE, OTHER ==
[~2016-10-20] VITALS: Ht 167.6 cm; Wt 72.6 kg
[~2016-10-20] MED LIST changes: -E-Z PAQUE 60% w/v SUSP 355ML BOTTLE As Ordered ONE; -E-Z-GAS II EFFERVESCENT PACKET (SODIUM BICARB./CITRIC ACID/SIMETHICONE) As Ordered ONE; -E-Z-HD 98% w/w 340GM SUSP BTL As Ordered ONE; +LIDOCAINE 2% INJ 100 MG/5 ML SDV (FOR ANES.) As Ordered ONE; +NS 1,000 ML IV SCH; +PROPOFOL 200 MG/20 ML VIAL As Ordered ONE; +fentaNYL 100 MCG/2 ML INJECTION (J3010) As Ordered ONE
--- NOTE | 2016-10-20 08:25 | ROOR ---
Patient Name: Antoine Causey Procedure Date: 10/20/2016 8:12 AM Date of : 1955 Age: 61 Room: [facility] Gender: Male Note Status: Finalized Procedure: Upper GI endoscopy Indications: Dysphagia, Heartburn Providers: Sylvester PENN MD Referring MD: Vicenta MATAMOROS MD Requesting Provider: Medicines: Monitored Anesthesia Care Complications: No immediate complications. Procedure: Pre-Anesthesia Assessment: - The heart rate, respiratory rate, oxygen saturations, blood pressure, adequacy of pulmonary ventilation, and response to care were monitored throughout the procedure. The Endoscope was introduced through the mouth, and advanced to the second part of duodenum. The upper GI endoscopy was accomplished without difficulty. The patient tolerated the procedure well. Findings: One superficial esophageal ulcer with no bleeding was found at the gastroesophageal junction. This was biopsied with a cold forceps for histology. Moderately severe esophagitis was found in the lower third of the esophagus. Biopsies were taken with a cold forceps for histology. Small Hiatal Hernia. The entire examined stomach was normal. The examined duodenum was normal. Impression: - Non-bleeding esophageal ulcer. Biopsied. - Moderately severe reflux esophagitis. Rule out Burton's esophagus. Biopsied. - Small Hiatal Hernia. - Normal stomach. - Normal examined duodenum. Recommendation: - Await pathology results. - Use Prilosec (omeprazole) 40 mg PO BID. - (the script was sent to your pharmacy on file) Sylvester Penn MD Sylvester PENN MD 10/20/2016 8:25:20 AM This report has been signed electronically. Number of Addenda: 0 Note Initiated On: 10/20/2016 8:12 AM Estimated Blood Loss: Estimated blood loss: none.
--- NOTE | 2016-10-20 08:34 | ROOR ---
Patient Name: Antoine Causey Procedure Date: 10/20/2016 8:13 AM Date of : 1955 Age: 61 Room: [facility] Gender: Male Note Status: Finalized Procedure: Colonoscopy Indications: Screening for colorectal malignant neoplasm Providers: Sylvester MAXWELL MD Referring MD: Vicenta MATAMOROS MD Requesting Provider: Medicines: Monitored Anesthesia Care Complications: No immediate complications. Procedure: Pre-Anesthesia Assessment: - The heart rate, respiratory rate, oxygen saturations, blood pressure, adequacy of pulmonary ventilation, and response to care were monitored throughout the procedure. The Colonoscope was introduced through the anus and advanced to the cecum, identified by appendiceal orifice and ileocecal valve. The colonoscopy was performed without difficulty. The patient tolerated the procedure well. The quality of the bowel preparation was good. Findings: The perianal and digital rectal examinations were normal. A few medium-mouthed diverticula were found in the sigmoid colon. Small Internal Hemorrhoids. The entire examined colon appeared normal on direct and retroflexion views. Impression: - Mild diverticulosis in the sigmoid colon. - Small Internal Hemorrhoids. - The entire colon is otherwise normal on direct and retroflexion views. - No specimens collected. Recommendation: - Use fiber, for example Citrucel, Fibercon, Konsyl or Metamucil. - Repeat colonoscopy in 10 years for screening purposes. Sylvester Maxwell MD Sylvester MAXWELL MD 10/20/2016 8:34:30 AM This report has been signed electronically. Number of Addenda: 0 Note Initiated On: 10/20/2016 8:13 AM Estimated Blood Loss: Estimated blood loss: none.
[2016-10-20 09:15] VITALS: BP 131/90
== END | disposition home or self-care (01) ==
LOC: M OPP 07:16
PROVIDERS: ATTEND Internal Medicine Gastroenterology
DX: Z12.11 Encounter for screening for malignant neoplasm of colon (principal); K57.30 Diverticulosis of large intestine without perforation or abscess without bleeding; K64.8 Other hemorrhoids; R12 Heartburn; K22.10 Ulcer of esophagus without bleeding; K21.0 Gastro-esophageal reflux disease with esophagitis; K44.9 Diaphragmatic hernia without obstruction or gangrene; J45.909 Unspecified asthma, uncomplicated; J44.9 Chronic obstructive pulmonary disease, unspecified; E78.00 Pure hypercholesterolemia, unspecified; Z79.51 Long term (current) use of inhaled steroids; Z79.899 Other long term (current) drug therapy; Z88.8 Allergy status to other drugs, medicaments and biological substances
CPT/HCPCS: 43239; 45378; 88305; 99156; 99157; J3010

== ENCOUNTER → 2017-06-22 | Outpatient (REF) | payer OTHER ==
[~2017-06-22] MED LIST changes: -LIDOCAINE 2% INJ 100 MG/5 ML SDV (FOR ANES.) As Ordered ONE; -NS 1,000 ML IV SCH; -PROPOFOL 200 MG/20 ML VIAL As Ordered ONE; -fentaNYL 100 MCG/2 ML INJECTION (J3010) As Ordered ONE
== END ==
LOC: M SFHCLERA 16:46
PROVIDERS: ATTEND Nurse Practitioner Family
DX: Z72.51 High risk heterosexual behavior (principal)

== ENCOUNTER → 2024-12-28 | Outpatient (CLI) | payer OTHER ==
[~2024-12-28] MED LIST changes: +ALBU2.5V10 INH; -ALBU83IN INH; +ZOFR4TAB14 PO; -ZOFR4TAB3 PO; +ZYRT10CA5 PO; -ZYRT10TA2 PO
== END ==
LOC: M PLARAD 13:11
PROVIDERS: ATTEND Internal Medicine
DX: M54.16 Radiculopathy, lumbar region (principal); M51.360 Other intervertebral disc degeneration, lumbar region with discogenic back pain only; M47.896 Other spondylosis, lumbar region; M99.63 Osseous and subluxation stenosis of intervertebral foramina of lumbar region

== ENCOUNTER → 2025-06-18 | Outpatient (CLI) | payer OTHER | LOC: M RAD 11:27 | PROVIDERS: ATTEND Registered Nurse | DX: Q61.8 Other cystic kidney diseases (principal) ==